=== PATIENT | male | born 1950 | race Caucasian/White ===

== ENCOUNTER → 2018-04-01 | Outpatient (CLI) | payer MEDICARE ==
[~2018-04-01] MED LIST: [UNRECOGNIZED DRUG - REMARK]
--- NOTE | 2018-04-02 09:21 | Cardiology Report ---
DATE OF STUDY: ECHOCARDIOGRAM M-MODE: Top normal aortic root size. Normal left ventricular wall thickness and contractility. Normal mitral and aortic valves. No pericardial effusion. SECTOR SCAN: Top normal aortic size. Normal left ventricular wall thickness and contractility. Normal mitral, aortic and tricuspid valves. No pericardial effusion. CARDIAC DOPPLER STUDY WITH COLOR: One plus mitral regurgitation. CONCLUSIONS 1. Left ventricular ejection fraction is approximately 65%. 2. Mild tricuspid regurgitation. 3. Top normal aortic root size measuring 3.6 cm. Job#: [id number] RI cc:BERTRAND BYRD MD
== END ==
LOC: RAD 09:29
PROVIDERS: ATTEND Family Medicine
DX: I10 Essential (primary) hypertension (principal)
CPT/HCPCS: 93306

== ENCOUNTER 2022-07-05 18:46 | Emergency (ER) | payer MEDICARE ==
[~2022-07-05] VITALS: Ht 170.2 cm; Wt 88.0 kg
[2022-07-05] MEDS ORDERED: CLONIDINE HCL 0.1 MG TAB PO ONE (20:00)
[2022-07-05] MEDS ORDERED: CLONIDINE HCL 0.1 MG TAB ONE (20:15)
[2022-07-05 21:51] VITALS: BP 158/87
== END 2022-07-05 21:51 | disposition home or self-care (01) ==
LOC: FSED 19:07
DX: R50.9 Fever, unspecified (principal); R03.0 Elevated blood-pressure reading, without diagnosis of hypertension; I10 Essential (primary) hypertension; E78.5 Hyperlipidemia, unspecified; K21.9 Gastro-esophageal reflux disease without esophagitis; E78.00 Pure hypercholesterolemia, unspecified; R94.31 Abnormal electrocardiogram [ECG] [EKG]
CPT/HCPCS: 99282